=== PATIENT | female | born 1955 | race Caucasian/White ===

== ENCOUNTER 2020-11-27 12:53 | Emergency (ER) | payer MEDICAID ==
[~2020-11-27] VITALS: Ht 147.3 cm; Wt 95.3 kg
[~2020-11-27 12:53] MED LIST: ABILIFY 5 MG TAB5 M1 PO; BUPROPION XL150 MG PO; DESYREL150 MG PO; EFFEXOR 5050 MG/1 T1 PO; FENOFIBRATE160 MG PO; GLUCOPHAGE500 MG PO; HYDROCODONE-AP1 EAC6 PO; LAMOTRIGINE150 MG PO; LISINOPRIL10 MG PO; LISINOPRIL20 MG PO; METFORMIN HCL500 MG PO; MINIPRESS2 MG PO; SINGULAIR 10 MG10 M1 PO; VENLAFAXINE HC150 M1 PO; VICODIN ES TAB1 EACH
[2020-11-27] MEDS ORDERED: SYMBICORT160 MCG/4. INH (13:52)
[2020-11-27] MEDS ORDERED: VENTOLIN HFA 1818 GM INH (13:53)
[2020-11-27] MEDS ORDERED: ASA81BEC PO (13:53)
[2020-11-27] MEDS ORDERED: GUMMI BEAR MUL1 EAC1 PO (13:53)
[2020-11-27] MEDS ORDERED: ALPHAGAN P5 ML OPHTHALMIC (13:54)
[2020-11-27] MEDS ORDERED: AMITRIPTYLINE H25 M3 PO (13:55)
[2020-11-27] MEDS ORDERED: FML 0.1% 10ML10 M1 OPHTHALMIC (13:55)
[2020-11-27] MEDS ORDERED: HYDROXYZINE HCL25 M2 PO (13:56)
[2020-11-27] MEDS ORDERED: LIPITOR40 MG PO (13:56)
[2020-11-27] MEDS ORDERED: PROZAC40 MG PO (13:56)
[2020-11-27 14:22] LABS: ABSOLUTE BASOPHILS 0.1 thou/uL (0.0-0.2); ABSOLUTE EOSINOPHILS 0.1 thou/uL (0.0-0.7); ABSOLUTE LYMPHOCYTES 1.8 thou/uL (0.8-5.3); ABSOLUTE MONOCYTES 0.5 thou/uL (0.0-1.2); ABSOLUTE NEUTROPHILS 6.5 thou/uL (1.6-8.1); BASOPHILS 1.2 %; EOSINOPHILS 1.6 %; HEMATOCRIT 41.6 % (37.0-47.0); HEMOGLOBIN 13.7 gm/dL (12.0-15.0); LYMPHOCYTES 20.3 %; MCH 28.7 pg (26.0-34.0); MCHC 32.9 g/dL (28.0-37.0); MCV 87.3 fL (80.0-100.0); MONOCYTES 5.1 %; NUCLEATED RBCS 0 /100WBC; PLATELET COUNT* 205 thou/uL (150-400); POLYS 71.8 %; RBC 4.76 mil/uL (4.20-5.00); RDW-CV 13.5 % (10.5-14.5)
[2020-11-27 14:27] LABS: CALCIUM 8.8 mg/dL (8.5-10.1); CREATININE 1.2 mg/dL (0.6-1.3); POTASSIUM 4.3 mmol/L (3.5-5.1)
[2020-11-27 14:32] LABS: TOTAL BILIRUBIN 0.8 mg/dL (<0.1-1.0); TOTAL PROTEIN 7.4 g/dL (6.4-8.2)
[2020-11-27 14:46] LABS: URINE BILIRUBIN NEGATIVE (Negative); URINE BLOOD TRACE (Negative); URINE COLOR YELLOW; URINE GLUCOSE-RANDOM 3+ (Negative); URINE KETONES 1+ (Negative); URINE LEUKOCYTES-REFLEX TRACE (Negative); URINE NITRITE-REFLEX NEGATIVE (Negative); URINE PROTEIN NEGATIVE (Negative); URINE UROBILINOGEN 0.2 E.U./dl (0.2-1.0)
[2020-11-27 14:48] LABS: URINE CLARITY HAZY
[2020-11-27 14:55] LABS: CASTS None Seen /LPF (None Seen); SQUAMOUS 0-3 Few /LPF (0-3); URINE RBC 0-2 Rare /HPF (0-2); URINE WBC-REFLEX 6-15 Few /HPF (0-5)
[2020-11-27 14:56] LABS: CRYSTALS None Seen /LPF (None Seen)
[2020-11-27] MEDS ORDERED: METFORMIN HCL500 M3 PO (15:37)
[2020-11-27] MEDS ORDERED: DIFLUCAN150 MG PO (15:37)
[2020-11-27] MEDS ORDERED: NYSTATIN 100,0015 G1 TOP (15:37)
[2020-11-27 15:55] VITALS: BP 141/65
--- NOTE | 2020-11-27 16:58 | EKG ---
[place] [address] ELECTROCARDIOGRAM REPORT Name: IGOR HANSEN Room: [facility]#: [id number] Admission: 11/27/20 Attend Phys: Discharge: 11/27/20 Date of : 55 Date of Service: 11/27/20 1438 Report #: [id number] THIS REPORT FOR: //name// [facility] ED Test Date: 2020-11-27 Test Time: 14:38:59 Pat Name: IGOR HANSEN Department: Room: Gender: F Metal Fabricator Apprentice: DSL : 1955 Requested By: Phoebe Mercado Order Number: [id number] MD: Henrik Casarez Measurements Intervals [place] Rate: 96 P: 77 [place]: 196 QRS: -53 QRSD: 103 T: 69 QT: 387 QTc: 490 Interpretive Statements Sinus rhythm LAD, consider left anterior fascicular block Borderline prolonged QT interval Compared to ECG 11/01/2011 10:26:06 Sinus arrhythmia no longer present Electronically Signed On 11-27-2020 16:57:49 CDT by Henrik Casarez [email or web address] <ELECTRONICALLY SIGNED> By: Henrik Casarez MD, [facility] 11/27/20 1657 1438 1438 Henrik Casarez MD, [facility] /EPI
== END 2020-11-27 15:56 | disposition home or self-care (01) ==
LOC: M.ERS 12:53
PROVIDERS: Physician Assistant
DX: E11.65 Type 2 diabetes mellitus with hyperglycemia (principal); B37.3 Candidiasis of vulva and vagina; E78.5 Hyperlipidemia, unspecified; G47.30 Sleep apnea, unspecified; Z88.0 Allergy status to penicillin; Z88.8 Allergy status to other drugs, medicaments and biological substances; Z90.49 Acquired absence of other specified parts of digestive tract; Z90.710 Acquired absence of both cervix and uterus; Z98.890 Other specified postprocedural states

== ENCOUNTER 2020-12-01 11:53 | Emergency (ER) | payer OTHER, MEDICAID ==
[~2020-12-01] VITALS: Ht 147.3 cm; Wt 95.3 kg
[~2020-12-01 11:53] MED LIST changes: +ALPHAGAN P5 ML OPHTHALMIC; +AMITRIPTYLINE H25 M3 PO; +ASA81BEC PO; +DIFLUCAN150 MG PO; +FML 0.1% 10ML10 M1 OPHTHALMIC; +GUMMI BEAR MUL1 EAC1 PO; +HYDROXYZINE HCL25 M2 PO; +LIPITOR40 MG PO; +METFORMIN HCL500 M3 PO; +NYSTATIN 100,0015 G1 TOP; +PROZAC40 MG PO; +SYMBICORT160 MCG/4. INH; +VENTOLIN HFA 1818 GM INH
[2020-12-01 12:25] LABS: ABSOLUTE BASOPHILS 0.1 thou/uL (0.0-0.2); ABSOLUTE EOSINOPHILS 0.1 thou/uL (0.0-0.7); ABSOLUTE MONOCYTES 0.3 thou/uL (0.0-1.2); ABSOLUTE NEUTROPHILS 3.1 thou/uL (1.6-8.1); BASOPHILS 1.3 %; BE 0.3 mmol/L (-2 to +3); EOSINOPHILS 2.5 %; HEMATOCRIT 40.3 % (37.0-47.0); HEMOGLOBIN 13.5 gm/dL (12.0-15.0); LYMPHOCYTES 35.8 %; MCHC 33.6 g/dL (28.0-37.0); MCV 86.5 fL (80.0-100.0); MONOCYTES 5.6 %; MPV 7.5 fl. (7.2-11.1); NUCLEATED RBCS 0 /100WBC; PCO2 VENOUS 38.5 mmHg (41.0-51.0); PLATELET COUNT* 189 thou/uL (150-400); PO2 VENOUS 59.6 mmHg (35.0-45.0); POLYS 54.8 %; RBC 4.66 mil/uL (4.20-5.00); RDW-CV 13.5 % (10.5-14.5); WBC 5.6 thou/uL (4.0-11.0)
[2020-12-01 12:41] LABS: POTASSIUM 4.4 mmol/L (3.5-5.1)
[2020-12-01 12:46] LABS: ALBUMIN 3.8 g/dL (3.4-5.0); MAGNESIUM 1.6 mg/dL (1.8-2.4); TOTAL BILIRUBIN 0.9 mg/dL (<0.1-1.0); TOTAL PROTEIN 7.1 g/dL (6.4-8.2)
[2020-12-01 13:35] LABS: URINE BILIRUBIN NEGATIVE (Negative); URINE BLOOD NEGATIVE (Negative); URINE CLARITY CLEAR; URINE COLOR YELLOW; URINE GLUCOSE-RANDOM 3+ (Negative); URINE KETONES 1+ (Negative); URINE LEUKOCYTES-REFLEX NEGATIVE (Negative); URINE NITRITE-REFLEX NEGATIVE (Negative); URINE PROTEIN NEGATIVE (Negative)
[2020-12-01] MEDS ORDERED: ZOFRAN ODT4 MG PO (15:07)
[2020-12-01 15:50] VITALS: BP 128/77
--- NOTE | 2020-12-01 16:14 | EKG ---
[place] [address] ELECTROCARDIOGRAM REPORT Name: IGOR HANSEN Room: [facility]#: [id number] Admission: 12/01/20 Attend Phys: Discharge: 12/01/20 Date of : 55 Date of Service: 12/01/20 1224 Report #: [id number] THIS REPORT FOR: //name// [facility] ED Test Date: 2020-12-01 Test Time: 12:24:17 Pat Name: IGOR HANSEN Department: Room: Gender: F Egg Worker: CCD : 1955 Requested By: Sylvia Rg Order Number: [id number] MD: Ra Brown Measurements Intervals [place] Rate: 93 P: 76 [place]: 195 QRS: -46 QRSD: 99 T: 60 QT: 377 QTc: 469 Interpretive Statements Sinus rhythm Left anterior fascicular block Compared to ECG 11/27/2020 14:38:59 No significant changes Electronically Signed On 12-01-2020 16:13:59 CDT by Ra Brown [email or web address] <ELECTRONICALLY SIGNED> By: Ra Brown MD, [facility] 12/01/20 1613 1224 1224 Ra Brown MD, [facility] /EPI
== END 2020-12-01 15:51 | disposition home or self-care (01) ==
LOC: M.ERS 11:53
PROVIDERS: Nurse Practitioner Family
DX: E11.9 Type 2 diabetes mellitus without complications (principal); R11.0 Nausea; G47.30 Sleep apnea, unspecified; E78.5 Hyperlipidemia, unspecified; Z88.0 Allergy status to penicillin; Z88.8 Allergy status to other drugs, medicaments and biological substances; Z90.49 Acquired absence of other specified parts of digestive tract; Z90.710 Acquired absence of both cervix and uterus; Z98.890 Other specified postprocedural states